=== PATIENT | female | born 1985 | race Caucasian/White ===

== ENCOUNTER 2017-03-21 12:02 | Emergency (ER) | payer MEDICAID ==
[~2017-03-21] VITALS: Ht 170.2 cm; Wt 49.5 kg
[2017-03-21 12:40] VITALS: Ht 170.2 cm; Wt 49.5 kg
[2017-03-21] MEDS ORDERED: PRED20TA PO (12:51)
--- NOTE | 2017-03-21 13:57 | ERD ---
ER Documentation Chief Complaint Date/Time DATE: 03/21/17 TIME: 13:55 Chief Complaint Pt with body rash X 1 week, dizzy since morning. HPI Patient is a 31-year-old female with no medical problems who presents with a rash. She felt dizzy this morning as well. The rashes all over her body and is itchy. She said that it started 1 week ago. She denies any new soaps, lotions, medications, or foods. She tried a cream which was of mild help. Upon review of old medical records this is the patient's first visit to the emergency department. ROS All systems reviewed and are negative except as per history of present illness. Medications Home Meds Active Scripts Prednisone* (Prednisone*) 20 Mg Tab, 60 MG PO DAILY for 5 Days, TAB Prov:BRIAN LEE MD 03/21/17 Allergies Allergies: Coded Allergies: No Known Allergy (Unverified , 03/21/17) PMhx/Soc Medical and Surgical Hx: pt denies Medical Hx FmHx Family History: No diabetes Physical Exam Vitals Vital Signs Date Time Temp Pulse Resp B/P Pulse Ox O2 Delivery O2 Flow Rate FiO2 03/21/17 12:40 98.6 80 18 104/60 99 Physical Exam Const: No acute distress Head: Atraumatic Eyes: Normal Conjunctiva ENT: Normal External Ears, Nose and Mouth. Neck: Full range of motion..~ No meningismus. Resp: Clear to auscultation bilaterally Cardio: Regular rate and rhythm, no murmurs Abd: Soft, non tender, non distended. Normal bowel sounds Skin: Mild erythema without petechia or purpura, rash is blanching Back: No midline or flank tenderness Ext: No cyanosis, or edema Neur: Awake and alert Psych: Normal Mood and Affect Procedures/MDM Patient is a 31-year-old female who presents with what appears to be an acute dermatitis or allergic reaction. She is otherwise well-appearing and well- hydrated. I believe outpatient management is appropriate. I doubt serious bacterial infection. The patient will be given a prescription for 5 days of prednisone. She can return for any worsening symptoms. There is no sign of tongue swelling or airway compromise. The patient can return for any worsening symptoms. Departure Diagnosis: Primary Impression: Dermatitis Additional Impression: Rash Condition: Fair Patient Instructions: Self-Care for Skin Rashes Referrals: [facility] Marcie schmidtho un examen mdico de control que le indica que no est en arnaud condicin que requiera tratamiento urgente en el Departamento de Emergencia. Un estudio ms profundo y el tratamiento de cornell condicin pueden esperar sin ningn riesgo hasta que usted sea atendida/o en el consultorio de cornell mdico o arnaud cl roxy. Es responsabilidad suya arreglar arnaud neva para el seguimiento del erik. MANEJO DE CONDICIONES NO URGENTES EN EL FUTURO 1) Si usted tiene un mdico de atencin primaria: Usted debera llamar a cornell mdico de atencin primaria antes de venir al departamento de emergencia. Despus de las horas de consultorio, cornell doctor o cornell asociado/a est disponible por telfono. El mdico o enfermero de bethany en el servicio telefnico puede asesorarle por pascale medio para atender el problema, o erik contrario se puede programar arnaud neva. 2) Si usted no tiene un mdico de atencin primaria: Llame al mdico o clnica de referencia que aparece abajo garrett las horas de consultorio para hacer arnaud neva para que le vean. CLINICAS: [facility] [phone] [facility] [phone] [facility]. [facility] [phone] [facility]. [facility] [phone] [facility]. [place] [phone] [facility]. [phone] [address] Additional Instructions: Llame al doctor MAANA y lala arnaud NEVA PARA DENTRO DE 1-2 CANELA.Dgale a la secretaria que nosotros le instruimos hacer esta neva.Avise o llame si cornell condicin se empeora antes de la neva. Regresa aqui si peor o no mejor. BRIAN LEE MD March 21, 2017 13:57
== END 2017-03-21 16:36 | disposition home or self-care (01) ==
LOC: FTE 12:02
DX: L30.9 Dermatitis, unspecified (principal)
CPT/HCPCS: 99283

== ENCOUNTER 2017-08-10 21:00 | Emergency (ER) | payer MEDICAID, OTHER ==
[~2017-08-10] VITALS: Ht 165.1 cm; Wt 68.0 kg
[~2017-08-10 21:00] MED LIST: PRED20TA PO
[2017-08-10 22:28] VITALS: Ht 165.1 cm; Wt 68.0 kg
--- NOTE | 2017-08-10 23:37 | RADRPT ---
PROCEDURE: Left breast ultrasound. CLINICAL INDICATION: Left breast pain. TECHNIQUE: Ultrasound of the whole left breast was performed with a high frequency linear transduce r. The images were reviewed on a high-resolution PACS monitor. COMPARISON: None available. FINDINGS: There is a breast implant in place. There is a dominant cluster of cysts at the 12 o'cloc k position measuring 2.1 x 1 x 1.6 cm. There are additional sub-centimeter cysts at the 10 o'clock p osition. No solid mass is identified. The axilla is unremarkable. IMPRESSION: 1. No sonographic evidence of malignancy in the left breast. Breast implant in place. 2. Benign cysts at the 12 o'clock and 10 o'clock positions. BIRADS 2: Benign. Follow-up any palpable/clinical abnormality as clinically warranted. Otherwise, t he patient can begin routine annual screening mammography at age 40. A reminder letter will be sent to the patient for their next mammogram through our data base. RPTAT: GG .Tashi Sanders MD, Date Time Electronically viewed and signed by .Tashi Sanders MD, MD on 08/10/2017 23:37 .P/
--- NOTE | 2017-08-10 23:46 | ERD ---
ER Documentation Chief Complaint Date/Time DATE: 08/10/17 TIME: 23:46 Chief Complaint c/o left breast pain HPI This is a 31-year-old female who presents the emergency department today complaining of left breast pain for the past month. States that she has felt a lump. States that she went to bilingual manager today and they did not do anything for her. Denies any fevers or chills. ROS All systems reviewed and are negative except as per history of present illness. Medications Home Meds Active Scripts Ibuprofen* (Motrin*) 600 Mg Tab, 600 MG PO Q6, #30 TAB Prov:KAVITA MAI PA-C 08/11/17 Prednisone* (Prednisone*) 20 Mg Tab, 60 MG PO DAILY for 5 Days, TAB Prov:BRIAN LEE MD 03/21/17 Allergies Allergies: Uncoded Allergies: NUTELLA (Allergy, Unknown, 08/10/17) PMhx/Soc History of Surgery: Yes (breast implants 05/15/2017) Hx Alcohol Use: Yes (occasional) Hx Substance Use: No Hx Tobacco Use: No Smoking Status: Never smoker Physical Exam Vitals Vital Signs Date Time Temp Pulse Resp B/P Pulse Ox O2 Delivery O2 Flow Rate FiO2 08/10/17 22:28 98.1 79 18 121/68 98 Physical Exam Const: NAD Head: Atraumatic Eyes: Normal Conjunctiva ENT: Normal External Ears, Nose and Mouth. Neck: Full range of motion..~ No meningismus. Resp: Clear to auscultation bilaterally Cardio: Regular rate and rhythm, no murmurs Breast: Breast with no obvious deformity. No erythema or warmth. No purulent drainage from nipple. No skin dimpling. Evidence of 2 cm x 2 cm well circumscribed area at 12 o'clock position. Skin: No petechiae or rashes Neur: Awake and alert Psych: Normal Mood and Affect Results 24 hrs DIAGNOSTIC IMAGING REPORT Patient: EDUAR CHAPMAN : 1985 Age: 31 Sex: F MR #: [id number] DOS: 08/10/17 0000 Ordering MD: KAVITA MAI PA-C Location: [facility] Room/Bed: PROCEDURE: Left breast ultrasound. CLINICAL INDICATION: Left breast pain. TECHNIQUE: Ultrasound of the whole left breast was performed with a high frequency linear transducer. The images were reviewed on a high-resolution PACS monitor. COMPARISON: None available. FINDINGS: There is a breast implant in place. There is a dominant cluster of cysts at the 12 o'clock position measuring 2.1 x 1 x 1.6 cm. There are additional sub-centimeter cysts at the 10 o'clock position. No solid mass is identified. The axilla is unremarkable. IMPRESSION: 1. No sonographic evidence of malignancy in the left breast. Breast implant in place. 2. Benign cysts at the 12 o'clock and 10 o'clock positions. BIRADS 2: Benign. Follow-up any palpable/clinical abnormality as clinically warranted. Otherwise, the patient can begin routine annual screening mammography at age 40. A reminder letter will be sent to the patient for their next mammogram through our data base. RPTAT: GG .Tashi Sanders MD, MD Date Time Electronically viewed and signed by .Tashi Sanders MD, MD on 08/10/2017 23:37 .P/ CC: KAVITA MAI PA-C/[facility] This is a 31-year-old female presents the emergency department today complaining of left breast pain for the past month and worse over the past couple of days. Given patient's complaints and evidence of a 2 x 2 centimeter well-circumscribed area of tenderness I did obtain an ultrasound Ultrasound shows no sonographic evidence of malignancy in the left breast. There is a breast implant in place. There is a dominant cluster of cysts at the 12 o'clock position measuring 2.1 x 1 x 1.6 cm. There are additional subcentimeter cysts at the 10 o'clock position. There is no solid mass identified. Patient is afebrile and otherwise well-appearing. Low suspicion for abscess or mastitis. At this time is consistent with left breast pain and fibrocystic changes. This was explained to the patient. Patient was instructed to follow back up with her bilingual manager. I will give her a list of resources. At this time the patient is stable for discharge and outpatient management. Patient should follow up with their PCP in the next 1-2 days. They may return to the emergency department sooner for any persistent or worsening of symptoms. Patient understood and agreed with the plan. Departure Diagnosis: Primary Impression: Breast pain Condition: KAVITA Gilliam PA-C Aug 10, 2017 23:46
[2017-08-11] MEDS ORDERED: IBUP-1542 PO (00:41)
== END 2017-08-11 01:19 | disposition home or self-care (01) ==
LOC: FTE 21:00
DX: N64.4 Mastodynia (principal)
CPT/HCPCS: 76642